=== PATIENT | female | born 1995 | race American Indian/Alaskan Native ===

== ENCOUNTER 2019-10-21 11:10 | Emergency (ER) | payer OTHER ==
[2019-10-21 11:26] VITALS: BP 106/72
[2019-10-21] MEDS ORDERED: KETOROLAC 30 MG/1 ML INJ IM ONE (13:37)
--- NOTE | 2019-10-21 13:43 | Event Note ---
ED Screening Note Date of service: 10/21/19 Time: 13:34 ED Screening Note: This initial assessment/diagnostic orders/clinical plan/treatment(s) is/are subject to change based on patients health status, clinical progression and re- assessment by fellow clinical providers in the ED. Further treatment and workup at subsequent clinical providers discretion. Patient/guardian urged not to elope from the ED as their condition may be serious if not clinically assessed and managed. Initial orders include: 24yo F states that she was given a Bactrim and Motrin for a diagnosed Pilonidal cyst 5 days ago; states no resolve and symptoms have worsened. Describes difficulty walking and standing.
--- NOTE | 2019-10-21 14:42 | Emergency Department Report ---
Abscess Boil HPI - HPI Chief Complaint: Skin/Abscess/Foreign Body Stated Complaint: CYST Time Seen by Provider: 10/21/19 13:31 Duration: 6 Days Location: Sacral/Pilonidal History: Yes Pain, No Fever, No Purulent Drainage, No Numbness, No Foreign Body, No Previous History, No Insect Bite HPI: 24 year old female presents to ED c/o abscess to buttock area. She states it started about 6days ago. She went to Urgent care 5 days ago and was prescribed Bactrim which she has been taking BID. She states despite antibiotics area seems to be getting more painful and swollen. She reports increased pain with walking, and sitting. She denies hx of similar in past. She denies any fever or chills. Home Medications: Previous Rx's Medication Instructions Recorded Last Taken Type HYDROcodone/APAP 5-325 [[place] 1 each PO Q4HR PRN #12 tablet 10/21/19 Unknown Rx 5/325] Allergies/Adverse Reactions: Allergies Allergy/AdvReac Type Severity Reaction Status Date / Time No Known Allergies Allergy Unverified 10/21/19 11:24 ED Review of Systems ROS: Stated complaint: CYST Other details as noted in HPI Constitutional: denies: chills, fever ENT: denies: ear pain, throat pain, dental pain, congestion Respiratory: denies: cough, orthopnea, shortness of breath, SOB with exertion, SOB at rest, wheezing Gastrointestinal: denies: abdominal pain, nausea, vomiting, diarrhea, constipation Genitourinary: denies: frequency, hematuria, abnormal menses Skin: rash (abscess). denies: lesions, change in color, change in hair/nails, pruritus, other Hematological/Lymphatic: denies: easy bleeding, easy bruising ED Past Medical Hx - Past Medical History Previous Medical History?: No - Surgical History Past Surgical History?: No - Social History Smoking Status: Never Smoker Substance Use Type: None - Medications Home Medications: Home Medications Medication Instructions Recorded Confirmed Last Taken Type HYDROcodone/APAP 5-325 [[place] 1 each PO Q4HR PRN #12 tablet 10/21/19 Unknown Rx 5/325] ED Abscess Boil Physical Exam - Exam General: Vital signs noted. No distress. Alert and acting appropriately. Size: >5 cm Exam: Yes Tenderness, Yes Fluctuance, Yes Surrounding Cellulites/Erythema, Yes Normal Neurologic Exam, Yes Normal Circulation, No Lymphangitis, No Crepitation, No Heart Murmur Exam: ~10cm x 4cm area of erythema, induration and fluctuance noted to pilonidal area. No streaking readness. Severe ttp. I & D Note - I & D Note I & D Note: Area - pilonidal. Area cleansed using betadine, anesthesia used was lidocaine 1% with epi, infiltrated about 13cc; 11inch blade use to make incision; large amt of pus drained; wound probed and deloculated; packed wound using 1/4inch iodoform and dressing applied. Patient tolerated procedure well. No complications. ED Course Vital Signs 10/21/19 11:24 Temperature 97.2 F L Pulse Rate 105 H Respiratory 20 Rate Blood Pressure 106/72 O2 Sat by Pulse 100 Oximetry Critical care attestation.: If time is entered above; I have spent that time in minutes in the direct care of this critically ill patient, excluding procedure time. ED Disposition Clinical Impression: Pilonidal abscess Disposition: DC-01 TO HOME OR SELFCARE Is pt being admited?: No Does the pt Need Aspirin: No Condition: Stable Instructions: Abscess Incision and Drainage (ED) Additional Instructions: Continue and finish the bactrim. Take pain medication as prescribed. You can change dressing if it needs to be drained but do not remove packing. Return to ED in 2-3 days for packing removal. Prescriptions: HYDROcodone/APAP 5-325 [[place] 5/325] 1 each PO Q4HR PRN #12 tablet PRN Reason: Pain Referrals: PRIMARY CARE, [Primary Care Provider] - 3-5 Days Forms: Work/School Release Form(ED) Time of Disposition: 15:37
[2019-10-21] MEDS ORDERED: LIDOCAINE 1%/EPINEPHRINE 1:100,000 VIAL (20 ML) INFILTRATI ONE (14:49)
== END 2019-10-21 15:59 | disposition home or self-care (01) ==
LOC: ED 11:10
DX: L05.01 Pilonidal cyst with abscess (principal)
CPT/HCPCS: 10080; 87116; 96372; 99282; J1885

== ENCOUNTER 2019-10-24 20:43 | Emergency (ER) | payer OTHER ==
[2019-10-24 20:50] VITALS: BP 103/63
[2019-10-24] MEDS ORDERED: ONDANSETRON 4 MG ODT TAB PO ONE (21:21)
[2019-10-24] MEDS ORDERED: ACETAMINOPHEN 500 MG TAB PO ONE (21:21)
[2019-10-24] MEDS ORDERED: CLINDAMYCIN 300 MG CAP PO ONE (21:21)
--- NOTE | 2019-10-24 21:27 | Emergency Department Report ---
ED General Adult HPI - General Chief complaint: Laceration/Recheck/Suture Stated complaint: PACKING REMOVAL Source: patient Mode of arrival: Ambulatory Limitations: No Limitations - History of Present Illness Initial comments: Patient is a 24-year-old -[place] female with no past medical history who presented to the ED for pilonidal abscess wound check and packing removal after having an I&D procedure performed on pilonidal abscess 2 days ago. Patient states that she is currently on Bactrim DS twice a day, ibuprofen as needed and [place] for pain. Patient denies fever, chills, nausea, vomiting, dizziness, chest pain, shortness of breath, numbness and tingling or weakness of lower extremities bilaterally, urinary or bowel incontinence or saddle paresthesia. MD Complaint: wound recheck; packing removal; pilonidal abscess wound check -: Sudden, days(s) (7) Location: buttocks Radiation: non-radiation Severity scale (0 -10): 3 Quality: aching, dull Consistency: constant Improves with: none Worsens with: none Associated Symptoms: denies other symptoms, rash (Mildly tender pilodinal abscess wound with packing in place). denies: confusion, chest pain, cough, diaphoresis, fever/chills, headaches, loss of appetite, malaise, nausea/vomiting, seizure Treatments Prior to Arrival: none - Related Data Previous Rx's Medication Instructions Recorded Last Taken Type HYDROcodone/APAP 5-325 [[place] 1 each PO Q4HR PRN #12 tablet 10/21/19 Unknown Rx 5/325] Clindamycin [Clindamycin CAP] 300 mg PO Q8HR #60 capsule 10/24/19 Unknown Rx Allergies Allergy/AdvReac Type Severity Reaction Status Date / Time No Known Allergies Allergy Unverified 10/21/19 11:24 ED Review of Systems ROS: Stated complaint: PACKING REMOVAL Other details as noted in HPI Constitutional: denies: chills, fever Eyes: denies: eye pain, eye discharge, vision change ENT: denies: ear pain, throat pain Respiratory: denies: cough, shortness of breath, wheezing Cardiovascular: denies: chest pain, palpitations Endocrine: no symptoms reported Gastrointestinal: denies: abdominal pain, nausea, diarrhea Genitourinary: denies: urgency, dysuria, discharge Musculoskeletal: denies: back pain, joint swelling, arthralgia Skin: rash (Mildly painful pilonidal open abscess wound with packing in place). denies: lesions Neurological: denies: headache, weakness, paresthesias Psychiatric: denies: anxiety, depression Hematological/Lymphatic: denies: easy bleeding, easy bruising ED Past Medical Hx - Past Medical History Previous Medical History?: No - Surgical History Past Surgical History?: No - Social History Smoking Status: Never Smoker Substance Use Type: None - Medications Home Medications: Home Medications Medication Instructions Recorded Confirmed Last Taken Type HYDROcodone/APAP 5-325 [[place] 1 each PO Q4HR PRN #12 tablet 10/21/19 Unknown Rx 5/325] Clindamycin [Clindamycin CAP] 300 mg PO Q8HR #60 capsule 10/24/19 Unknown Rx ED Physical Exam - General Limitations: No Limitations General appearance: alert, in no apparent distress - Head Head exam: Present: atraumatic, normocephalic, normal inspection - Eye Eye exam: Present: normal appearance, PERRL, EOMI Pupils: Present: normal accommodation - ENT ENT exam: Present: normal exam, normal orophraynx, mucous membranes moist, TM's normal bilaterally, normal external ear exam - Neck Neck exam: Present: normal inspection, full ROM - Respiratory Respiratory exam: Present: normal lung sounds bilaterally. Absent: respiratory distress, wheezes, rales, rhonchi, chest wall tenderness, accessory muscle use - Cardiovascular Cardiovascular Exam: Present: regular rate, normal rhythm, normal heart sounds. Absent: systolic murmur, diastolic murmur, rubs, gallop - GI/Abdominal GI/Abdominal exam: Present: soft, normal bowel sounds. Absent: tenderness, guarding, rebound, hyperactive bowel sounds, hypoactive bowel sounds, organomegaly - Extremities Exam Extremities exam: Present: normal inspection, full ROM, normal capillary refill - Back Exam Back exam: Present: normal inspection, full ROM. Absent: tenderness, muscle spasm, paraspinal tenderness, vertebral tenderness - Neurological Exam Neurological exam: Present: alert, oriented X3, CN II-XII intact, normal gait, reflexes normal - Psychiatric Psychiatric exam: Present: normal affect, normal mood - Skin Skin exam: Present: warm, dry, intact, normal color, rash (Mildly tender or pain pilonidal abscess wound with packing in place. No swelling or erythema) ED Course Vital Signs 10/24/19 20:48 Temperature 98.0 F Pulse Rate 73 Respiratory 18 Rate Blood Pressure 103/63 O2 Sat by Pulse 99 Oximetry ED Medical Decision Making - Medical Decision Making This is a 24-year-old -[place] female with no past medical history who presented to the ED for pilonidal abscess wound check and packing removal after having an I&D procedure performed on pilonidal abscess 2 days ago. Patient states that she is currently on Bactrim DS twice a day, ibuprofen as needed and [place] for pain. In the ED, patient is alert and oriented x3 and is not in distress with normal vital signs. The packing was successfully removed and the wound cleaned and debrided with normal saline. The wound was then dressed appropriately and the patient discharged home and advised to continue taking previously prescribed antibiotics. Patient was added clindamycin 300 mg every 8 hours in addition to what she is currently taking. Patient was advised to follow-up with her primary care physician in 7 to 10 days for reevaluation. Patient was also advised return to the ED immediately if symptoms get worse. - Differential Diagnosis Abscess; Cellulitis; Folliculitis Critical care attestation.: If time is entered above; I have spent that time in minutes in the direct care of this critically ill patient, excluding procedure time. ED Disposition Clinical Impression: Pilonidal abscess, Abscess packing removal Disposition: TO HOME OR SELFCARE Is pt being admited?: No Does the pt Need Aspirin: No Condition: Stable Instructions: Acute Wound Care (ED), Wound Healing and Your Diet (ED) Additional Instructions: Take all prescribed antibiotic medications as previously advised, drink plenty fluids and follow-up with your primary care physician in 7 to 10 days for reevaluation. Return to the ED immediately if symptoms get worse. Prescriptions: Clindamycin [Clindamycin CAP] 300 mg PO Q8HR #60 capsule Referrals: [facility] [Other] - 7-10 days Time of Disposition: 21:33 Print Language: ITALIAN
== END 2019-10-24 21:50 | disposition home or self-care (01) ==
LOC: ED 20:43
DX: L05.01 Pilonidal cyst with abscess (principal); Z48.00 Encounter for change or removal of nonsurgical wound dressing; Z79.899 Other long term (current) drug therapy
CPT/HCPCS: Q0162

== ENCOUNTER 2020-06-04 03:14 | Emergency (ER) | payer OTHER ==
[2020-06-04 05:31] LABS: Basophils % (Auto) 0.9 % (0.0-1.8); Eosinophils # (Auto) 0.1 K/mm3 (0.0-0.4); Eosinophils % (Auto) 1.5 % (0.0-4.3); Hematocrit 37.8 % (30.3-42.9); Hemoglobin 12.6 gm/dl (10.1-14.3); Lymphocytes # (Auto) 1.7 K/mm3 (1.2-5.4); Lymphocytes % (Auto) 44.1 % (13.4-35.0); Mean Corpuscular HGB Conc 33 % (30-34); Mean Corpuscular Volume 85 fl (79-97); Monocytes # (Auto) 0.3 K/mm3 (0.0-0.8); Monocytes % (Auto) 7.6 % (0.0-7.3); Platelet Count 288 K/mm3 (140-440); Red Blood Count 4.43 M/mm3 (3.65-5.03); Red Cell Distribution Width 13.1 % (13.2-15.2)
[2020-06-04 05:49] LABS: Alanine Aminotransferase 22 units/L (7-56); Blood Urea Nitrogen 11 mg/dL (7-17); Calcium 9.4 mg/dL (8.4-10.2); Hemolysis Index 10
[2020-06-04 05:50] LABS: BUN/Creatinine Ratio 16
[2020-06-04 06:39] LABS: Bacteria,Urine 1+ /HPF (Negative); Bilirubin,Urine NEG (Negative); Blood,Urine NEG (Negative); Color,Urine Yellow (Yellow); Mucus,Urine FEW /HPF; Protein,Urine <15 mg/dL mg/dL (Negative); Urobilinogen,Urine < 2.0 mg/dL (<2.0)
== END 2020-06-04 10:05 | disposition left against medical advice (07) ==
LOC: ED 03:14
DX: R10.9 Unspecified abdominal pain (principal); R11.10 Vomiting, unspecified; Z53.21 Procedure and treatment not carried out due to patient leaving prior to being seen by health care provider
CPT/HCPCS: 36415; 80053; 81001; 85025